=== PATIENT | male | born 1950 | race Caucasian/White ===

== ENCOUNTER 2016-12-06 14:38 | Emergency (ER) | payer MEDICARE, BC ==
--- NOTE | ~2016-12-06 | CR157 ---
[facility] A Service of [facility] / [facility] RADIOLOGY TEXT RESULTS PATIENT: DIEGO AVILA LOCATION: [facility] : 48 UNIT #: [id number] AGE: [address]: Joey Rudd MD SEX: M ORDER DR: [id number] [facility] [address] [place], [place] [address] [id number] MR#: [id number] Acc #: [id number] NAME: DIEGO AVILA : 1950 SEX: M STUDY DATE/TIME: 12/06/2016 14:05 UNIT: [facility] ROOM: STUDY DESCRIPTION: CR Humerus Min 2 View Rt Attending Physician: Joey Rudd M.D. Ordering Physician: Ramos Pederson M.D. Primary Care Physician: Fabien Duong M.D. MEDICAL IMAGING REPORT This report is preliminary unless electronic signature is present EXAM Right humerus series INDICATIONS Right upper arm pain after fall today. TECHNIQUE 2 views of the right humerus. COMPARISON None. FINDINGS Mildly impacted fracture through the humeral neck. No dislocation. No fracture along the shaft of the humerus. IMPRESSION Mildly impacted but not significantly displaced fracture of the proximal humeral neck. Dictated by... Marcos Umana M.D. THIS IS AN ELECTRONICALLY VERIFIED REPORT Marcos Umana M.D. at 12/08/2016 6:59 AM EED/lorena TD: 12/06/2016 16:16 JOB #: [id number] MEDICAL IMAGING REPORT COPY
[~2016-12-06 14:38] MED LIST: DIOVAN80 M1 PO; HYGROTON PO; IRON325 ( 651 PO; LEVAQUIN PO; LIPITOR PO; LOPID600 MG PO; LORTAB 5-325 M1 EACH PO; TOPROL XL100 MG PO; VIBRAMYCIN100 M1 PO; ZYPREXA10 MG PO
== END 2016-12-06 14:55 | disposition home or self-care (01) ==
LOC: CED 14:38
DX: S42.211A Unspecified displaced fracture of surgical neck of right humerus, initial encounter for closed fracture (principal); I10 Essential (primary) hypertension; E78.5 Hyperlipidemia, unspecified; W01.0XXA Fall on same level from slipping, tripping and stumbling without subsequent striking against object, initial encounter; Y92.009 Unspecified place in unspecified non-institutional (private) residence as the place of occurrence of the external cause
CPT/HCPCS: 73060; 99283